=== PATIENT | male | born 1960 | race Caucasian/White ===

== ENCOUNTER → 2021-12-10 | Outpatient (CLI) | payer OTHER ==
--- NOTE | 2021-12-10 09:51 | XR ---
EXAMINATION TYPE: XR forearm LT, XR wrist complete LT, XR hand complete LT DATE OF EXAM: 12/10/2021 6:41 AM INDICATION: Patient age:Male; 61 years old; Reason for study: S63.502A S60.222A S50.12XA Sprain left wrist; COMPARISON: None TECHNIQUE: The left forearm was examined in AP and lateral projections. The left wrist and hand were evaluated in frontal and lateral projections. FINDINGS: No acute osseous pathology, soft tissue swelling or joint dislocations are seen. There is a deformity to the ulnar styloid process which does not demonstrate cortical irregularity to suggest fracture. IMPRESSION: No evidence of acute fracture. Consider MRI for evaluation of the soft tissues.
== END | disposition home or self-care (01) ==
LOC: RADXRMAIN 09:03
PROVIDERS: ATTEND Emergency Medicine
DX: S63.502A Unspecified sprain of left wrist, initial encounter (principal); S60.222A Contusion of left hand, initial encounter; S50.12XA Contusion of left forearm, initial encounter

== ENCOUNTER → 2021-12-15 | Outpatient (CLI) | payer OTHER ==
--- NOTE | 2021-12-15 10:20 | XR ---
EXAMINATION TYPE: XR wrist complete LT DATE OF EXAM: 12/15/2021 10:14 AM INDICATION: Patient age:Male; 61 years old; Reason for study: S63.502D L wrist injury; [facility]. COMPARISON: Left wrist radiograph 12/10/2021. TECHNIQUE: 4 views of the left wrist. Frontal, navicular, lateral, and oblique. FINDINGS: No acute osseous pathology, joint dislocation, or joint effusion. Similar deformity to the almost entire process without cortical irregularity to suggest fracture. No callus formation. No evid ence of any soft tissue swelling is seen. IMPRESSION: No acute fracture or dislocation. No callus formation.
== END | disposition home or self-care (01) ==
LOC: RADXRMAIN 09:57
PROVIDERS: ATTEND Emergency Medicine
DX: S63.502D Unspecified sprain of left wrist, subsequent encounter (principal)

== ENCOUNTER → 2023-06-07 | Outpatient (CLI) | payer MEDICARE ==
--- NOTE | 2023-06-07 09:00 | CTL ---
EXAMINATION TYPE: CT Low Dose Lung DATE OF EXAM ORDERED: 06/07/2023 HISTORY: . Low Dose CT Lung Screening CT DLP: 108.[address] CTDI: 2.6 mGy IV CONTRAST USED: None. SCREENING VISIT: First visit COMPARISON: None. TECHNIQUE: Low dose computed tomography scan was performed through the chest at 1 millimeter thick se ctions and reconstructed images in the coronal plane at [address] DIAGNOSTIC QUALITY: Satisfactory FINDINGS: LUNG NODULES: 5.5 mm pulmonary nodule superior segment right lower lobe image 36. No additional nodul es seen. Right basilar linear parenchymal scarring. LUNGS: COPD: Severity: At least moderate paraseptal emphysema. Fibrosis: Severity:None Lymph nodes: None Other findings: None RIGHT PLEURAL SPACE: Effusion: None Calcification: None Thickening: None Pneumothorax: None LEFT PLEURAL SPACE: Effusion: None Calcification: None Thickening: None Pneumothorax: None HEART: Heart Size: Mildly enlarged Coronary calcification: Mild Pericardial effusion: None OTHER FINDINGS: Upper abdomen: No significant abnormality Bony thorax: Degenerative changes Supraclavicular region: No significant abnormalityOther: No significant abnormalityI IMPRESSION: Benign FOLLOW UP CT CHEST RECOMMENDATION: Follow-up screening in one year CT LUNG RAD: LUNG RAD CATEGORY 2 benign
== END | disposition home or self-care (01) ==
LOC: RADCTMAIN 08:30
PROVIDERS: ATTEND Family Medicine
DX: Z12.2 Encounter for screening for malignant neoplasm of respiratory organs (principal); F17.210 Nicotine dependence, cigarettes, uncomplicated
CPT/HCPCS: 71271